=== PATIENT | male | born 1970 | race African-American/Black ===

== ENCOUNTER 2018-07-27 19:43 | Emergency (ER) | payer MEDICAID ==
[~2018-07-27] VITALS: Ht 182.9 cm; Wt 82.0 kg
[2018-07-27] MEDS ORDERED: LIDOCAINE 1%/EPI 1:100,000 10 ML VIAL IJ ONE (20:30)
[2018-07-27 21:25] LABS: BASOPHILS % 0.4 % (0.0-2.0); EOSINOPHILS % 0.7 % (0.0-5.0); HEMATOCRIT. 39.8 % (42.0-52.0); HEMOGLOBIN. 13.9 g/dL (14.0-18.0); MEAN CORPUSCULAR HEMOGLOBIN 34.1 pg (28.0-32.0); MEAN CORPUSCULAR VOLUME 97.7 fL (80.0-94.0); MEAN PLATELET VOLUME 8.2 fl (7.4-10.4); MONOCYTES % 9.3 % (2.0-8.0); NEUTROPHILS % 68.6 % (40.0-76.0); PLATELET 290 x1000/uL (130-400); RED BLOOD CELL COUNT 4.08 mill/uL (4.7-6.1); RED CELL DISTRIBUTION WIDTH 12.6 % (11.6-14.6)
[2018-07-27 21:28] LABS: CHLORIDE 106 mEq/L (98-107)
[2018-07-27 21:33] LABS: ETHANOL BLOOD 42 mg/dL
[2018-07-27] MEDS ORDERED: LIDOCAINE HCL/EPINEPHRINE 1%-EPI 1:100,000 20 ML VIAL INFIL NR (21:45)
[2018-07-27 23:43] VITALS: BP 122/76
== END 2018-07-27 23:44 | disposition home or self-care (01) ==
LOC: ER 19:43
DX: S01.111A Laceration without foreign body of right eyelid and periocular area, initial encounter (principal); I10 Essential (primary) hypertension; F17.210 Nicotine dependence, cigarettes, uncomplicated; Y08.89XA Assault by other specified means, initial encounter; Y93.89 Activity, other specified; Y92.89 Other specified places as the place of occurrence of the external cause; Y99.8 Other external cause status
CPT/HCPCS: 12013; 36415; 70450; 80053; 80320; 84484; 85025; 99284; 99406; J3490; Z7610; G0480